=== PATIENT | male | born 1995 | race Two or more races ===

== ENCOUNTER 2025-01-03 10:05 | Outpatient (OUT) | payer MEDICARE, MEDICAID, SELFPAY ==
--- OUTSIDE RECORDS SUMMARY | 2024-12-26 10:00 | XMS_ITS | Encounter Summary ---
Author Organization [employer] [facility] tem Address [facility] [id number] [address] [place] [address] Care Team Providers Care Stunt Driver Name Role Phone DormanTonya lin JOVI Primary Care Provider Reason for Visit * ReasonCommentsFollow-upHemorrhoid/chronic diarrhea/fatigue Encounter Details DateTypeDepartmentCare Team (Latest Contact Info)Ptvasffybcw53/06/2025 10:00 AM ESTOffice Visit [facility] [address] [place] [address] [address] [place] [address] Charlie Landeros, DO [address] [facility] [address] [place] [address] Diabetes mellitus type 2 with hyperosmolarity, uncontrolled (CMS-HCC) (Primary Dx); Hepatic steatosis; Morbid obesity (CMS-HCC); Chronic diarrhea of unknown origin; Type 2 diabetes mellitus without complication, without long-term current use of insulin (CMS-HCC) Social History Tobacco UseTypesPacks/DayYears UsedDateSmoking Tobacco: NeverSmokeless Tobacco: NeverAlcohol UseStandard Drinks/WeekCommentsNo0 (1 standard drink = 0.6 oz pure alcohol)[facility] UtilitiesAnswerDate RecordedIn the past 12 months has the electric, gas, oil, or water company threatened to shut off services in your home?No 4PHQ-2AnswerDate RecordedTotal Zlvdv900312/26/2024PRAPARE - TransportationAnswerDate RecordedIn the past 12 months, has lack of transportation kept you from medical appointments or from getting medications?No 11/09/2023In the past 12 months, has lack of transportation kept you from meetings, work, or from getting things needed for daily living?No11/09/2023 AUDIT-CAnswerDate RecordedQ1: How often do you have a drink containing alcohol? Never12/26/2024Q2: How many drinks containing alcohol do you have on a typical day when you are drinking?Patient does not drink12/26/2024Q3: How often do you have six or more drinks on one occasion?Never12/26/2024Housing InstabilityAnswer Date RecordedAre you worried or concerned that in the next two months you may not have stable housing that you own, rent or stay in as a part of a household? No11/09/2023hildcareAnswerDate PsxeyoizHozrhlrxvIkdxoha78/12/2019Employment AnswerDate YrdbmmxuZcxqugxlykUxvlcqy39/12/2019Hunger ScreeningAnswerDate RecordedWithin the past 12 months we worried whether our food would run out before we got money to buy more.Never True12/26/2024Within the past 12 months the food we bought just didn't last and we didn't have money to get more.Never True12/26/2024Purpose - LifeAnswerDate RecordedPurpose and direction in life Tukebjp1203/06/2020ex and Gender InformationValueDate RecordedSex Assigned at BirthNot on fileLegal DciKjzz5809/25/2014 11:53 AM EDTGender IdentityNot on file Sexual OrientationNot on filedocumented as of this encounter Last Filed Vital Signs Vital SignReadingTime TakenCommentsBlood Qpdrglim685/8212/26/2024 10:00 AM EST Bxiyk206012/26/2024 10:00 AM ZMMGcdnpzxkzsn41.6 ??C (97.9 ??F)12/26/2024 10:00 AM ESTRespiratory Rate--Oxygen Rxligznwzk58%12/26/2024 10:00 AM ESTInhaled Oxygen Concentration--Jhrqyx707.5 kg (393 lb 9.6 oz)12/26/2024 10:00 AM ESTHeight--Body Mass Index63.5308 7:57 PM EDTdocumented in this encounter Functional Status * AUDIT-C ScoreAnswerDate of IozszqagwmHfthxb123/06/2025 10:00 AM Vero Pyle CNA * QuestionAnswerDate of AssessmentAuthorQ1: How often do you have a drink containing alcohol?Never12/26/2024 10:00 AM Vero Pyle, NERYAQ2: How many drinks containing alcohol do you have on a typical day when you are drinking? Patient does not drink12/26/2024 10:00 AM Vero Pyle CNAQ3: How often do you have six or more drinks on one occasion?Never12/26/2024 10:00 AM Vero Villafuerte CNA documented as of this encounter Progress Notes * Charlie Landeros, - 12/26/2024 10:00 AM EST Images from the original note were not included. [facility] [address] [facility] [place] [address] [place] [address] Patient: Bernard Freedman Date of : 1995 Encounter Date: 12/26/2024 Subjective: Chief Complaint Chief Complaint Patient presents with Follow-up Hemorrhoid/chronic diarrhea/fatigue History of Present Illness Bernard Freedman is a 29 y.o. male, established patient, that presents to the office for 1 monthfollow up. History provided by patient 29 yr old male presented to clinic for 1 month follow up. Patient with several questions regarding medications, lab results completed since last visit. Patient's biggest concern today related to moderate hepatic steatosis with no discrete focal hepatic parenchymal abnormality. Lab work from 11/25/24showed ALT level elevated at 51. Patient's diarrhea has improved. Review of Systems Review of Systems Constitutional: Positive for fatigue (has improved some as he began taking vitamin B12 supplement as he was taking metformin which has helped with symptoms.). Has been eating more fiber in food and protein supplement to help with satiety Gastrointestinal: Positive for diarrhea (He states that diarrhea improved with changing to metfromin XR from regular metformin but still having loose stools primarily but consistency varies from softto normal formed stool). He states that since diarrhea has improved that he is not having as significant hemmorrhoid issues He states that urge to have BM varies after eating from almost immediately after starting eating to30 minutes after eating on average. This too has improved with with changing from metformin to metformin XR. Vital Signs BP 136/82 (BP Site: Left Arm, BP Postition: Sitting) Pulse 79 Temp 36.6 ??C (97.9 ??F) (Oral) Wt (!) 178.5 kg (393 lb 9.6 oz) SpO2 97% BMI 63.53 kg/m?? Physical Exam Physical Exam Constitutional: General: He is not in acute distress. Appearance: He is morbidly obese. He is not ill-appearing or toxic-appearing. Cardiovascular: Rate and Rhythm: Normal rate and regular rhythm. Heart sounds: No murmur heard. Pulmonary: Effort: Pulmonary effort is normal. No accessory muscle usage or respiratory distress. Breath sounds: Normal breath sounds. No decreased breath sounds, wheezing, rhonchi or rales. Neurological: Mental Status: He is alert. Psychiatric: Mood and Affect: Mood and affect normal. Speech: Speech normal. Behavior: Behavior normal. Behavior is not agitated. Past Medical, Family, Surgery and Social History Past Medical History: Diagnosis Date Acute appendicitis, uncomplicated 10/01/2021 Anxiety Arrhythmia Bipolar disorder ([facility]) Depression DM (diabetes mellitus), type 2 ([facility]) HTN (hypertension) Obesity Panic disorder Prediabetes PTSD (post-traumatic stress disorder) Sleep apnea Past Surgical History: Procedure Laterality Date CYST REMOVAL Left wrist DAVINCI APPENDECTOMY N/A 11/09/2023 Performed by Sher Oconnor MD at [facility] EXCISION GANGLION WRIST Left 11/04/2016 Performed by Baldemar Roberson MD at [facility] Family History Problem Relation Age of Onset Heart failure Mother Diabetes type II Father Kidney disease Father Other Problem (dialysis) Father Heart failure Maternal Grandmother Heart failure Maternal Aunt Social History Socioeconomic History Marital status: Spouse name: Not on file Number of children: Not on file Years of education: Not on file Highest education level: Not on file Occupational History Not on file Tobacco Use Smoking status: Never Smokeless tobacco: Never Vaping Use Vaping status: Never Used Substance and Sexual Activity Alcohol use: No Drug use: No Sexual activity: Defer Other Topics Concern Not on file Social History Narrative Not on file Social Drivers of Health Financial Resource Strain: Not on file Food Insecurity: No Food Insecurity (12/26/2024) Hunger Screening Food Insecurity - Worry: Never True Food Insecurity - Inability: Never True Recent Concern: Food Insecurity - Food Insecurity Present (11/22/2024) Hunger Screening Food Insecurity - Worry: Sometimes True Food Insecurity - Inability: Sometimes True Transportation Needs: No Transportation Needs (11/09/2023) PRAPARE - Transportation Lack of Transportation (Medical): No Lack of Transportation (Non-Medical): No Physical Activity: Not on file Stress: Not on file Social Connections: Not on file Interpersonal Safety: Not At Risk (11/09/2023) Humiliation, Afraid, Rape, and Kick questionnaire Fear of Current or Ex-Partner: No Emotionally Abused: No Physically Abused: No Sexually Abused: No Housing Instability: Low Risk (11/09/2023) Housing Instability Housing Instability: No Allergies and Current Medications Allergies Allergen Reactions Lamotrigine Tachycardia Paliperidone Other (See Comments) Current Outpatient Medications on File Prior to Visit Medication Sig acetaminophen (TYLENOL EXTRA STRENGTH) 500 mg tablet Take 2 tablets (1,000 mg total) by mouth every6 (six) hours as needed for pain. dicyclomine (BENTYL) 20 mg tablet Take 1 tablet (20 mg total) by mouth in the morning and 1 tablet (20 mg total) before bedtime. hydrocortisone (ANUSOL-HC) 2.5 % rectal cream Insert 1 Application into the rectum in the morning and 1 Application before bedtime. hydrocortisone (ANUSOL-HC) 25 mg suppository Insert 1 suppository (25 mg total) into the rectum every 12 (twelve) hours. ibuprofen (MOTRIN) 800 mg tablet Take 1 tablet (800 mg total) by mouth every 8 (eight) hours as needed for pain. ketoconazole (NIZORAL) 2 % shampoo Apply 1 Application topically 2 (two) times a week. Apply to damp skin, lather, leave on 5 minutes, and rinse lancets (onetouch ultrasoft) misc Test daily and as needed omeprazole (PriLOSEC) 40 mg capsule Take 1 capsule (40 mg total) by mouth in the morning. ondansetron ODT (ZOFRAN ODT) 4 mg disintegrating tablet Dissolve 1 tablet (4 mg total) on tongue every 8 (eight) hours as needed for nausea for up to 10 doses. polycarbophil (FIBERCON) 625 mg tablet Take 1 tablet (625 mg total) by mouth in the morning. propranolol LA (INDERAL LA) 120 mg 24 hr capsule Take 1 capsule (120 mg total) by mouth every morning. TAKE 1 CAPSULE(120 MG) BY MOUTH IN THE MORNING No current facility-administered medications on file prior to visit. Labs and Imaging Lab Results Component Value Date WBC 11.3 (H) 11/25/2024 HGB 14.2 11/25/2024 HCT 43.4 11/25/2024 PLT 319 11/25/2024 CHOL 98 (L) 11/25/2024 TRIG 350 (H) 11/25/2024 HDL 28 (L) 11/25/2024 ALT 50 (H) 11/25/2024 AST 26 11/25/2024 K 3.9 11/25/2024 CL 102 11/25/2024 CREATININE 0.79 11/25/2024 BUN 9 11/25/2024 CO2 29 11/25/2024 TSH 2.67 11/25/2024 INR 1.0 10/07/2023 MICROALBUR <0.7 11/25/2024 CT abdomen and pelvis with contrast History: epigastric pain Exam/Technique: CT images of abdomen and pelvis were obtained following intravenous contrast injection. CT does automated exposure control was utilized. All CT scans at this facility use dose modulation, iterative reconstruction, and/or weight based dosing when appropriate to reduce radiation dose to as low as reasonably achievable. Comparison: 02/02/2024 Findings: Lung bases are clear. There is moderate hepatic steatosis with no discrete focal hepatic parenchymal abnormality. Gallbladder is mildly distended with no bile duct dilatation. Spleen, pancreas and adrenal glands are unremarkable. There are few pericaval lymph node largest measures 1.3 cm grossly stable compared to prior exam. Both kidneys are unremarkable. Bowel loops are grossly unremarkable. There is no free peritoneal air or fluid. Urinary bladder and prostate gland are grossly unremarkable Portal and mesenteric vessels are patent. There are few mesenteric root lymph nodes more prominent compared to prior exam largest measures 1.7 cm. Portal and mesenteric vessels are grossly patent. There is no gross acute osseous injury. IMPRESSION: Mesenteric adenitis with interval development of few prominent mesenteric root lymph nodes. Moderate hepatic steatosis. Finalized by Juan Hernandez MD on 10/12/2024 11:01 PM Assessment/Plan: 1. Diabetes mellitus type 2 with hyperosmolarity, uncontrolled ([facility]) - blood-glucose meter kit; Use as instructed Dispense: 1 each; Refill: 0 - blood sugar diagnostic (glucose blood) strip; Test daily and as needed Dispense: 120 strip; Refill: 5 - tirzepatide (MOUNJARO) 2.5 mg/0.5 mL pen injector; Inject 2.5 mg under the skin every 7 days. Dispense: 2 mL; Refill: 0 2. Hepatic steatosis 3. Morbid obesity ([facility]) 4. Chronic diarrhea of unknown origin 5. Type 2 diabetes mellitus without complication, without long-term current use of insulin ([facility]) Chronic diarrhea of unknown origin Diarrhea improved as patient changed from metformin to metformin ER. Stool tests were negative. Will stop metformin to see if diarrhea continues to resolve without irritant. Morbid obesity ([facility]) Obesity is unchanged. Patient's diarrhea improved but had ~10 lbs weight gain since last visit. Discussed with patient the benefits of GLP-1 medications in regards to blood sugar control and weight loss. Weight loss will help with hepatic steatosis Hepatic steatosis Discussed with patient that weight loss will help with hepatic steatosis. Continue to follow a low carb diet Type 2 diabetes mellitus without complication, without long-term current use of insulin ([facility]) Last HbA1c 6.5%. Due to diarrhea symptoms, will stop metformin. Start on Mounjaro 2.5 mg SQ weekly to for 4 weeks then will plan to increase strength of medication monthly. Follow up: 1 month diabetes/obesity weight loss - Charlie Landeros DO 12/26/24 9:30 PM documented in this encounter Miscellaneous Notes * Assessment & Plan Note - Charlie Landeros DO - 12/26/2024 9:30 PM EST Associated Problem(s): Type 2 diabetes mellitus without complication, without long-term current useof insulin ([facility]) Last HbA1c 6.5%. Due to diarrhea symptoms, will stop metformin. Start on Mounjaro 2.5 mg SQ weekly to for 4 weeks then will plan to increase strength of medication monthly. * Assessment & Plan Note - Charlie Landeros DO - 12/26/2024 9:23 PM EST Associated Problem(s): Hepatic steatosis Discussed with patient that weight loss will help with hepatic steatosis. Continue to follow a low carb diet * Assessment & Plan Note - Charlie Landeros DO - 12/26/2024 9:22 PM EST Associated Problem(s): Morbid obesity (CMS-HCC) Obesity is unchanged. Patient's diarrhea improved but had ~10 lbs weight gain since last visit. Discussed with patient the benefits of GLP-1 medications in regards to blood sugar control and weight loss. Weight loss will help with hepatic steatosis * Assessment & Plan Note - Charlie Landeros DO - 12/26/2024 9:18 PM EST Associated Problem(s): Chronic diarrhea of unknown origin Diarrhea improved as patient changed from metformin to metformin ER. Stool tests were negative. Will stop metformin to see if diarrhea continues to resolve without irritant. documented in this encounter Plan of Treatment DateTypeDepartmentCare Team (Latest Contact Info)Xcorfjjejtd99/11/2025 11:00 AM ESTClinical Support [facility] [address] [place] [address] Tonya Dorman APRN-CNP [address] [place] [phone] documented as of this encounter Visit Diagnoses Diagnosis Diabetes mellitus type 2 with hyperosmolarity, uncontrolled (CMS-HCC)- Primary Hepatic steatosis Other chronic nonalcoholic liver disease Morbid obesity (CMS-HCC) Morbid obesity Chronic diarrhea of unknown origin Diarrhea Type 2 diabetes mellitus without complication, without long-term current use of insulin (CMS-HCC) documented in this encounter Additional Health Concerns AssessmentNoted TimePHQ-9 Depression Total Score: 24102/26/2024 9:59 AM EST documented as of this encounter Care Teams Team MemberRelationshipSpecialtyStart DateEnd Date Tonya Dorman APRN-PRODUCTION WEIGHER [address] [place] [phone] PCP - GeneralNurse Practitioner03/25/24documented as of this encounter
--- OUTSIDE RECORDS SUMMARY | 2025-01-03 10:11 | XMS_ITS | Clinical Summary ---
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 Name Role Phone Tonya Dorman MD Primary Care Provider [phone] Allergies Active AllergyReactionsCriticalityNoted BxxeIzoahwxzXnqhaacgqgn38/19/2021 Other Reaction(s): increase heart rate, Tachycardia Viebukpitaam42/19/2021 Other Reaction(s): depressed, Other (See Comments) Medications MedicationSigDispense QuantityRefillsLast FilledStart DateEnd DateStatus acetaminophen (Tylenol) 500 MG tablet Take 500 mg by mouth every 6 (six) hours if dcsjyz0202/28/2023ctive ibuprofen 800 MG tablet Take 800 mg by mouth every 8 (eight) hours if bxzmct0007/13/2023ctive atorvastatin (Lipitor) 10 MG tablet Indications:Hyperlipidemia, unspecified hyperlipidemia typeTake 1 tablet (10 mg) by mouth Daily 90 tablet ctive Additional Information Patient not taking.Reported on 02/15/2024 nystatin (Mycostatin) 264643 UNIT/GM powder Indications:Yeast infectionApply topically 2 (two) times a day 30 g 5Active Blood Glucose Monitoring Suppl (B-D LOGIC BLOOD GLUCOSE) w/Device kit Indications:Type 2 diabetes mellitus with hyperglycemia, without long-term current use of insulin (HCC)1 each Daily Fill with what the insurance will cover 1 kit 01/25/2024ctive metFORMIN (Glucophage) 500 MG tablet Indications:Type 2 diabetes mellitus with hyperglycemia, without long-term current use of insulin (HCC)TAKE 1 TABLET(500 MG) BY MOUTH IN THE MORNING AND IN THE EVENING WITH MEALS 180 tablet 4Active propranolol LA (Inderal LA) 120 MG 24 hr capsule Indications:AnxietyTAKE 1 CAPSULE(120 MG) BY MOUTH IN THE MORNING. DO NOT CRUSH, CHEW, OR SPLIT 90 capsule 4Active Glucose Blood (Blood Glucose Test Strips 333) strip Indications:Type 2 diabetes mellitus with hyperglycemia, without long-term current use of insulin (HCC)1 each by In Vitro route Daily Please fill with what insurance will cover 100 strip 5Active Lancets misc Indications:Type 2 diabetes mellitus with hyperglycemia, without long-term current use of insulin (HCC)1 each Daily Please fill what his insurance will cover 100 each 5Active losartan (Cozaar) 50 MG tablet Take 50 mg by mouth in the morning.5Active omeprazole (PriLOSEC) [address] capsule Take 40 mg by mouth in the morning.5Active Active Problems ProblemNoted DateDiagnosed DateType 2 diabetes mellitus without complication, without long-term current use of ifrddwn3402/15/2024Mixed obsessional thoughts and acts4Pain in both feet07/13/2023cute pain of right ahitwsch00/04/2024 PTSD (post-traumatic stress disorder)3Bipolar 1 disorder, mixed, xuxrsnah66/04/2023cute internal derangement of left knee3Pain in left shin11/09/2022cquired equinus deformity of foot11/07/2022onstipation by delayed colonic iztxnhq7111/07/20221297Xqbzsorlv70/18/2023Hearing difficulty of both ears11/07/2022Mixed conductive and sensorineural hearing loss of right ear 11/07/2022ifficulty controlling anger04/26/2022Episode of recurrent major depressive fftohsrl49/07/2023cute appendicitis, qrxixqrxngyji33/12/2022 Ljreckuzyikl23/12/2022Acute back pain with jcrtwlmi38/07/2021Back pain of lumbosacral region with /31/1036Ckuporjtutf16/14/2021Posttraumatic stress gcypgulz11/23/2020Attention deficit hyperactivity disorder (ADHD), combined type09/12/2019Learning eqcefatlym16/13/2020Allergic vhibjsha07/05/2019 Gastroesophageal reflux kxjwmkj8109/28/2018Chronic kcdcjny7704/25/2018Vitamin D uuqurgqaep19/12/8893Qnrvkeg40/30/2017Bipolar I /12/2017Panic attack 07/11/20166423Olrbbjini80/22/2017Mixed ehqbldsyoqborz51/28/2017Morbid obesity 03/19/2016Benign essential qjsulewwyutm08/09/2015OSA on CPAP12/25/2014 Resolved Problems ProblemNoted DateDiagnosed DateResolved DateAnxiety disorder due to general medical rowisnqpy52djustment Bilateral hearing lossontact with and (suspected) exposure to environmental tobacco smoke (acute) (chronic)Low HDL (under 40)Memory loss Fpfvokglmtbwlxpeehsg53/20/201910/04/2023Lipoprotein deficiency disorder Hyperlipidemiaure hyperglyceridemia nxiety about mpvoea97 Immunizations ImmunizationAdministration DatesNext OhsJIG4205/06/1997,03/06/1997,1996DTaP, Hrzxiskethi58/02/2002,12/26/1997HPV, Fbzdlsjonqhq63/15/2010,06/11/2009, 04/20/2009Hep A, ped/adol, 2 dose04/20/2009Hep B, Adolescent or Pediatric 05/06/1997,1996,1996HiB, lpijfwgkczj19/06/1998,05/06/1997,03/06/1997 ,1996IPV05/22/2001Influenza, seasonal, tbqejvyepl79/13/2012,12/04/2009 Influenza, seasonal, injectable, preservative free11/30/2018,12/29/2008MMR 11/13/2002,10/05/2001,12/26/1997Meningococcal KMB8T2302/16/2009Novel jhmrtraax-C4P6-60, preservative-free02/16/2009OPV05/06/1997,03/06/1997, 1996Tdap104/19/20086746Vsivkdrve48/28/2009,12/26/1997 Family History Medical HistoryRelationNameCommentsAnxiety disorderFatherDiabetesFatherHeart diseaseFatherHypertensionFatherstomach troubleFatherAnxiety disorderMother DepressionMotherHypertensionMotherLung diseaseMotherMental illnessMotherStroke Motherstomach troubleMotherRelationNameStatusCommentsBrother1 brotherFatherAlive MotherAliveSister 1Sister 2 Social History Tobacco UseTypesPacks/DayYears UsedDateSmoking Tobacco: NeverSmokeless Tobacco: Never Tobacco Cessation:Counseling Given: Not Answered Alcohol UseStandard Drinks/WeekCommentsNot Currently0 (1 standard drink = 0.6 oz pure alcohol)caffeine: 4-10 cans of soda dailyPHQ-2AnswerDate RecordedPatient Health Questionnaire-2 Bkyff226Sex and Gender InformationValueDate RecordedSex Assigned at ArpeuVcdl71/12/2024 10:43 AM ESTLegal RlsBapl7705/04/2022 6:37 PM EDTGender CkflpvitMbbi35/15/2023 6:37 PM EDTSexual OrientationNot on file Last Filed Vital Signs Vital SignReadingTime TakenCommentsBlood Gfyiwtos440/7801 3:32 PM EST Otpet071202/15/2024 1:59 PM UAHVeyaaxttdmf11.2 ??C (97.2 ??F)03/11/2024 3:32 PM ESTRespiratory Gxmu872704/17/2023 1:59 PM ESTOxygen Grcqcauzws66%02/15/2024 1:59 PM ESTInhaled Oxygen Concentration--Wmofvi496 kg (382 lb)06/28/2024 10:34 AM EDT Wsdqnh051.6 cm (5' 6 )06/28/2024 10:34 AM EDTBody Mass Index61.66006/28/2024 10:34 AM EDT Plan of Treatment Health MaintenanceDue DateLast DoneCommentsCOVID-19 Vaccine (#1)2001 Diabetes: Retinopathy Ggoecfibi90/11/2007Pneumococcal Vaccine: Pediatrics (0 to 5 Years) and At-Risk Patients (6 to 64 Years) (1 of 2 - PCV)10/01/2015Medicare Annual Wellness (AWV)/3Diabetes: Hemoglobin A1C04/24/2024 01/25/2024, 09/05/2022, 06/01/2020, Additional history existsInfluenza Vaccine (#1), 03/04/2011, 12/04/2009, Additional history exists Diabetes: Urine Protein Nbxbwisol61 Procedures Procedure NamePriorityDate/TimeAssociated DiagnosisCommentsPOCT GLYCOSYLATED HEMOGLOBIN (HGB A1C)Ysdoens8601/25/2024 4:19 PM EST Elevated blood sugar level MICROALBUMIN / CREATININE URINE RHVLYDwhrcfa93/27/2024 3:40 PM EST Prediabetes from Last 3 Months or Most Recently Relevant to Health Maintenance Results * POCT glycosylated hemoglobin (Hb A1C) docked device (01/25/2024 4:19 PM EST) ComponentValueRef RangeTest MethodAnalysis TimePerformed AtPathologist SignatureHemoglobin A1C10.0Specimen (Source)Anatomical Location / Laterality Collection Method / VolumeCollection TimeReceived TimeBloodVenous blood specimen / Qzucxks2001/25/2024 4:19 PM EST Narrative Authorizing ProviderResult TypeResult StatusChristy Jermaine Rosado POINT OF CARE TEST ENTER/EDIT ORDERABLESFinal Result * (ABNORMAL) Microalbumin / creatinine, urine ratio (01/17/2024 3:40 PM EST) ComponentValueRef RangeTest MethodAnalysis TimePerformed AtPathologist SignatureCREATININE, RANDOM OZVXH8746 - 320 mg/dLQUESTALBUMIN, URINE2.3See Note: mg/dLQUESTComment: Reference Range: Reference Range Not established ALBUMIN/CREATININE RATIO, RANDOM URINE33(H)<30 mg/g creatQUESTComment: The ADA defines abnormalities in albumin excretion as follows: Albuminuria Category ?Result (mg/g creatinine) Normal to Mildly increased <30 Moderately increased ? 30-299 Severely increased > OR = 300 The ADA recommends that at least two of three specimens collected within a 3-6 month period be abnormal before considering a patient to be within a diagnostic category. Specimen (Source)Anatomical Location / LateralityCollection Method / Volume Collection TimeReceived TimeUrineUrine specimen obtained by clean catch procedure / Gmcgbtr3901/17/2024 3:40 PM EST01/17/2024 3:40 PM EST Narrative Resulting Agency Comment Performing Organization Information ?Site ID: [id number] ?Name: [facility] ?Address: [address] [place] [address], [address] [place] [id number] ?Director: Miguel Lala MD Authorizing ProviderResult TypeResult StatusChristy A Alonzo CHACKO URINE ORDERABLESFinal ResultPerforming OrganizationAddressCity/State/ZIP CodePhone Number [facility] from Last 3 Months or Most Recently Relevant to Health Maintenance Insurance Care Teams Team MemberRelationshipSpecialtyStart DateEnd Date Tonya Dorman MD [address], [place] [address] PCP - GeneralFamily Medicine03/05/24
--- OUTSIDE RECORDS SUMMARY | 2025-01-03 10:11 | XMS_ITS | Encounter Summary ---
Author Organization [employer] tem Address [id number] [address] 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 Name Role Phone Tonya Dorman JOVI Primary Care Provider Encounter Details DateTypeDepartmentCare Team (Latest Contact Info)Sujubtdlrwn08/06/2025Travel Social History Tobacco UseTypesPacks/DayYears UsedDateSmoking Tobacco: NeverSmokeless Tobacco: NeverAlcohol UseStandard Drinks/WeekCommentsNo0 (1 standard drink = 0.6 oz pure alcohol)[facility] UtilitiesAnswerDate RecordedIn the past 12 months has the electric, gas, oil, or water company threatened to shut off services in your home?No 11/09/2023HQ-2AnswerDate RecordedTotal Vyspb348612/26/2024PRAPARE - TransportationAnswerDate RecordedIn the past 12 months, [...] in as a part of a household? No4ChildcareAnswerDate UwxumqhsPsznwevfuUbofqdh28/12/2019Employment AnswerDate KfjpieakDfwcdyrbzgJlpevzx26/12/2019Hunger ScreeningAnswerDate RecordedWithin the past 12 months we worried whether our food would run out before we got money to buy more.Never True12/26/2024Within the past 12 months the food we bought just didn't last and we didn't have money to get more.Never True12/26/2024Purpose - LifeAnswerDate RecordedPurpose and direction in life Fptluvm7803/06/2020ex and Gender InformationValueDate RecordedSex Assigned at BirthNot on fileLegal TzgJowm9709/25/2014 11:53 AM EDTGender IdentityNot on file Sexual OrientationNot on filedocumented as of this encounter Functional Status * AUDIT-C ScoreAnswerDate of BswosiqzilBtchkd838/06/2025 10:00 AM Vero Pyle CNA * QuestionAnswerDate of AssessmentAuthorQ1: How often do you have a drink containing alcohol?Never12/26/2024 10:00 AM Vero Pyle CNAQ2: How many drinks containing alcohol do you have on a typical day when you are drinking? Patient does not drink12/26/2024 10:00 AM Vero Pyle CNAQ3: How often do you have six or more drinks on one occasion?Never12/26/2024 10:00 AM Vero Villafuerte CNA documented as of this encounter Plan of Treatment DateTypeDepartmentCare Team (Latest Contact Info)Gbitzmhlkdd04/11/2025 11:00 AM ESTClinical Support [facility] [address] [place] [phone] Tonya Dorman APRN-GAEL [address] [place] [address], [place] [phone] documented as of this encounter Visit Diagnoses Not on filedocumented in this encounter Additional Health Concerns AssessmentNoted TimePHQ-9 Depression Total Score: 9:59 AM EST documented as of this encounter Care Teams Team MemberRelationshipSpecialtyStart DateEnd Date Tonya Dorman, NAJMA-GAEL [address] [place] [phone] PCP - GeneralNurse Practitioner03/25/24documented as of this encounter
--- OUTSIDE RECORDS SUMMARY | 2025-01-03 10:11 | XMS_ITS | Clinical Summary ---
Author Organization [facility] Address [address] [place] [address] Care Team Providers Care Spring Tier Name Role Phone Unavailable Primary Care Provider Unavailabl e Social History Tobacco UseTypesPacks/DayYears UsedDateSmoking Tobacco: Never AssessedSex and Gender InformationValueDate RecordedSex Assigned at BirthNot on fileLegal Sex Male12/10/2024 2:06 PM EDTGender IdentityNot on fileSexual OrientationNot on file Plan of Treatment DateTypeDepartmentCare Team (Latest Contact Info)Uamwjxsvice40/01/2025 10:20 AM ESTOffice Visit [facility] [address] [place] [address] Glenn Fu MD [address] [place] [phone] Health MaintenanceDue DateLast DoneCommentsMedicare Annual Wellness (AWV) 1996Depression Knnciqluu66/11/2009dult Vwgkyoc75 Influenza Vaccine (#1), 12/04/2009, 02/16/2009, Additional history existsZoster Vaccines (1 of 2)7104/19/2008, 12/26/1997HIB HjubtkxbFtdlcxhhx50/06/1998, 05/06/1997, 03/06/1997, Additional history exists IPV RfktjmbxDohjtmvii22/02/2002, 05/06/1997, 03/06/1997, Additional history existsMeningococcal VaccineAged Out02/16/2009No longer eligible based on patient's age to complete this topicVaricella VbvnarvnAqapqplzp24/28/2009, 12/26/1997HPV KjootftqIqqbzzfuu55/15/2010, 06/11/2009, 04/20/2009Meningococcal B VaccineAged OutNo longer eligible based on patient's age to complete this topic Pneumococcal Vaccine: Pediatrics (0 to 5 Years) and At-Risk Patients (6 to 64 Years)Aged OutNo longer eligible based on patient's age to complete this topic Rotavirus VaccinesAged OutNo longer eligible based on patient's age to complete this topic Insurance
--- OUTSIDE RECORDS SUMMARY | 2025-01-03 10:11 | XMS_ITS | Clinical Summary ---
Author Organization [facility] Address [id number] 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 MedicationSigDispense QuantityRefillsLast FilledStart DateEnd DateStatus omeprazole (PriLOSEC) 40 mg capsule Take 1 capsule (40 mg total) by mouth in the morning. 30 capsule 5Active ketoconazole (NIZORAL) 2 % shampoo Indications:Scalp psoriasisApply 1 Application topically 2 (two) times a week. Apply to damp skin, lather, leave on 5 minutes,and rinse 120 mL 5Active lancets (onetouch ultrasoft) [facility] Indications:Diabetes mellitus type 2 with hyperosmolarity, uncontrolled ([facility])Test daily and as needed 120 each 505Active ibuprofen (MOTRIN) 800 mg tablet Take 1 tablet (800 mg total) by mouth every 8 (eight) hours as needed for pain. 90 tablet 5Active acetaminophen (TYLENOL EXTRA STRENGTH) 500 mg tablet Take 2 tablets (1,000 mg total) by mouth every 6 (six) hours as needed for pain. 100 tablet 5Active ondansetron ODT (ZOFRAN ODT) 4 mg disintegrating tablet Dissolve 1 tablet (4 mg total) on tongue every 8 (eight) hours as needed for nausea for up to 10 doses. 10 tablet 5Active dicyclomine (BENTYL) 20 mg tablet Take 1 tablet (20 mg total) by mouth in the morning and 1 tablet (20 mg total) before bedtime. 20 tablet 5Active propranolol LA (INDERAL LA) 120 mg 24 hr capsule Indications:Benign essential hypertensionTake 1 capsule (120 mg total) by mouth every morning. TAKE 1 CAPSULE(120 MG) BY MOUTH IN THE MORNING 30 capsule 5Active hydrocortisone (ANUSOL-HC) 2.5 % rectal cream Indications:Hemorrhoids, unspecified hemorrhoid typeInsert 1 Application into the rectum in the morning and 1 Application before bedtime. 30 g 5Active hydrocortisone (ANUSOL-HC) 25 mg suppository Indications:Hemorrhoids, unspecified hemorrhoid typeInsert 1 suppository (25 mg total) into the rectum every 12 (twelve) hours. 60 suppository 5Active polycarbophil (FIBERCON) 625 mg tablet Indications:Hemorrhoids, unspecified hemorrhoid typeTake 1 tablet (625 mg total) by mouth in the morning. 200 tablet 5Active blood-glucose meter kit Indications:Diabetes mellitus type 2 with hyperosmolarity, uncontrolled ([facility])Use as instructed 1 each 5Active blood sugar diagnostic (glucose blood) strip Indications:Diabetes mellitus type 2 with hyperosmolarity, uncontrolled ([facility])Test daily and as needed 120 strip 5Active tirzepatide (MOUNJARO) 2.5 mg/0.5 mL pen injector Indications:Diabetes mellitus type 2 with hyperosmolarity, uncontrolled ([facility])Inject 2.5 mg under the skin every 7 days. 2 mL 5Active blood-glucose meter kit Indications:Diabetes mellitus type 2 with hyperosmolarity, uncontrolled ([facility])Use as instructed 1 each Discontinued(Reorder) blood sugar diagnostic (glucose blood) strip Indications:Diabetes mellitus type 2 with hyperosmolarity, uncontrolled ([facility])Test daily and as needed 120 strip 50Discontinued(Reorder) metFORMIN XR (GLUCOPHAGE XR) 500 mg 24 hr tablet Indications:Type 2 diabetes mellitus without complication, without long-term current use of insulin ([facility])Take 2 tablets (1,000 mg total) by mouth daily with breakfast. TAKE 2 TABLETS(1000 MG) BY MOUTH DAILY WITH BREAKFAST 180 tablet Discontinued atorvastatin (LIPITOR) 40 mg tablet Indications:Mixed hyperlipidemiaTake 1 tablet (40 mg total) by mouth in the morning. 90 tablet Discontinued(Therapy completed) Active Problems ProblemNoted DateDiagnosed DateHepatic bwbtrqaoh83/08/2025 Assessment & Plan (12/26/2024 9:23 PM EST): Discussed with patient that weight loss will help with hepatic steatosis. Continue to follow a low carb diet Chronic diarrhea of unknown hzrbbr9111/27/2024 Assessment & Plan (12/26/2024 9:18 PM EST): Diarrhea improved as patient changed from metformin to metformin ER. Stool tests were negative. Will stop metformin to see if diarrhea continues to resolve without irritant. Rqowqvjoute64/06/2025 Assessment & Plan (07/26/2024 8:50 PM EDT): Discussed with patient the different treatment options for hemorrhoids including topical agents like Anusol HC ointment which he has been using, suppository agents and procedures to remove hemorrhoid. Patient understood that ultimately he will need some kind of procedure as hemorrhoids have been persistent for some time but wanted to try nonsurgical options first. Prescribed Anusol lqygljxvwatsmd89 mg suppository to apply every 12 hours for symptoms. Transient weakness of lower mdxijaxhg39/06/2025 Assessment & Plan (07/26/2024 8:51 PM EDT): Unsure of etiology for episodic transient weakness of his lower extremity. Ordered x-rays of left and right knee to evaluate. May consider imaging of the lumbar spine or nerve conduction studies. Scalp /03/2025 Assessment & Plan (07/26/2024 8:47 PM EDT): Prescribed Nizoral 2% shampoo to apply 2 times weekly. Dampened scalp apply shampoo and leave in for 5 minutes and then rinse. Type 2 diabetes mellitus without complication, without long-term current use of vlwblze0403/25/2024 Assessment & Plan (12/26/2024 9:30 PM EST): Last HbA1c 6.5%. Due to diarrhea symptoms, will stop metformin. Start on Mounjaro 2.5 mg SQ weekly to for 4 weeks then will plan to increase strength of medication monthly. Gastroesophageal reflux smdpiwx2603/25/2024Post-op pain11/09/2023Mixed obsessional thoughts and acts4Pain in both feet4Acute pain of right uzjyuyqn15/04/2024ipolar 1 disorder, mixed, biwxtbsu52/04/2023cute internal derangement of left knee11/09/2022ain in left shin11/09/2022cquired equinus deformity of foot11/07/2022onstipation by delayed colonic birwirj1911/07/2022 Hearing difficulty of both ears11/07/2022Mixed conductive and sensorineural hearing loss of right ear11/07/2022Episode of recurrent major depressive shtsmoqa29/07/2023ifficulty controlling anger04/26/2022cute back pain with /07/2021Back pain of lumbosacral region with kunjcomn88/31/2021 Attention deficit hyperactivity disorder (ADHD), combined type09/12/2019Learning ywknvzwblo92/13/2020Allergic hfgdsujv13/05/2019Chronic dmlltdf0904/25/2018Vitamin D tdlvyncfrd86/12/1645Pdqggup57/30/2017Panic wwbmff4307/11/2016Mixed hlpcikqbenztsl40/28/2017Morbid pflwumi8503/19/2016 Assessment & Plan (12/26/2024 9:22 PM EST): Obesity is unchanged. Patient's diarrhea improved but had ~10 lbs weight gain since last visit. Discussed with patient the benefits of GLP-1 medications in regards to blood sugar control and weight loss. Weight loss will help with hepatic steatosis Abnormal csnnmncbxgnegchsr57/07/2016Chest pain11/27/2015Benign essential nrelrwlpdftt69/09/2015OSA on CPAP12/25/2014PTSD (post-traumatic stress disorder) Resolved Problems ProblemNoted DateDiagnosed DateResolved DateAcute appendicitis, uncomplicated ppendicitis Encounters DateTypeDepartmentCare TqsrEernpfcpwmu84/06/2025 10:00 AM ESTOffice Visit [facility] [address] [place] [phone] Charlie Landeros, Diabetes mellitus type 2 with hyperosmolarity, uncontrolled (CMS-HCC) (Primary Dx); Hepatic steatosis; Morbid obesity (CMS-HCC); Chronic diarrhea of unknown origin; Type 2 diabetes mellitus without complication, without long-term current use of insulin (CMS-HCC)12/26/20248069Opnzld11/09/5242Ncsaac02/06/2025Telephone [facility] [address] [place] [address] Reyna Dillard CMA 11/25/2024Telephone [facility] [address] [place] [phone] Vero Lindo CNA Cardiology Tfmydtnp60/03/2025 10:00 AM EDTClinical Support [facility] [address] [place] [phone] Charlie Landeros DO Type 2 diabetes mellitus without complication, without long-term current use of insulin ([facility]) (Primary Dx); Hepatic steatosis; Morbid obesity (CMS-HCC); Vitamin D deficiency; Chronic diarrhea of unknown origin; Mixed hyperlipidemia; Benign essential hypertension; Maternal family history of congestive heart failure; Hemorrhoids, unspecified hemorrhoid type; Chronic zyhgyez4811/22/20242046Hwoswh84/11/2025Telephone [facility] [address] [place] [address], [place] [phone] Vero Lindo CNA 10/25/2024Orders Only [facility] [address] [place] [phone] Tonya Dorman APRN-STUD SHEEP FARMER Gastroesophageal reflux disease, unspecified whether esophagitis present (Primary Dx); Hemorrhoids, unspecified hemorrhoid type10/25/2024Telephone [address] [place] [phone] Tonya Dorman APRN-STUD SHEEP FARMER 10/12/2024 7:57 PM EDT - 10/12/2024 10:53 PM EDTEmerKet[facility] [address] [place] [phone] Laura Alejandra DO Nausea and vomiting, unspecified vomiting type (Primary Dx) Discharge Disposition: Home10/12/2024Travelfrom Last 3 Months Immunizations ImmunizationAdministration DatesNext RubZZL8105/06/1997,03/06/1997,1996DTaP, Henvkadkpdb71/02/2002,12/26/1997H1N1 Inj Preservative Free02/16/2009HPV Jmrochffzuyj98/15/2010,06/11/2009,04/20/2009Hep A, 2 Dose04/20/2009HiB12/26/1997 ,05/06/1997,03/06/1997,1996IPV05/22/2001Influenza (IM) Preservative Free 11/30/2018,12/29/2008Influenza, Im Trivalent Dveqvyxxkwkm45/13/2012,12/04/2009 MMR11/13/2002,10/05/2001,12/26/1997Meningococcal LYU8I7902/16/2009OPV05/06/1997, 03/06/1997,1996Tdap104/19/20081833Kbrtklbqj96/28/2009,12/26/1997 Family History Medical HistoryRelationNameCommentsDiabetes type IIFatherKidney diseaseFather dialysisFatherHeart failureMaternal AuntHeart failureMaternal GrandmotherHeart failureMotherRelationNameStatusCommentsFatherMaternal AuntAliveMaternal GrandmotherMother Social History Tobacco UseTypesPacks/DayYears UsedDateSmoking Tobacco: NeverSmokeless Tobacco: Never Tobacco Cessation:Counseling Given: Not Answered Alcohol UseStandard Drinks/WeekCommentsNo0 (1 standard drink = 0.6 oz pure alcohol)[facility] UtilitiesAnswerDate RecordedIn the past 12 months has the [employer], [employer], [employer], or water [employer] threatened to shut off services in your home?No 11/09/2023HQ-2AnswerDate RecordedTotal Rsjys850612/26/2024PRAPARE - TransportationAnswerDate RecordedIn the past 12 months, [...] as a part of a household? No4ChildcareAnswerDate IxqmlbhwByffjwnskSfoaioy74/12/2019Employment AnswerDate RuvpyemiGedvpjlwubQszvhew09/12/2019Hunger ScreeningAnswerDate RecordedWithin the past 12 months we worried whether our food would run out before we got money to buy more.Never True12/26/2024Within the past 12 months the food we bought just didn't last and we didn't have money to get more.Never True12/26/2024Purpose - LifeAnswerDate RecordedPurpose and direction in life Reodqei8803/06/2020ex and Gender InformationValueDate RecordedSex Assigned at BirthNot on fileLegal QfxRuyu8109/25/2014 11:53 AM EDTGender IdentityNot on file Sexual OrientationNot on file Last Filed Vital Signs Vital SignReadingTime TakenCommentsBlood Turpestn113/8212/26/2024 10:00 AM EST Sepur210312/26/2024 10:00 AM MZDXbgzohliouy60.6 ??C (97.9 ??F)12/26/2024 10:00 AM ESTRespiratory Xhsh204510/12/2024 7:57 PM EDTOxygen Ogdtolsoch73%12/26/2024 10:00 AM ESTInhaled Oxygen Concentration--Aduean544.5 kg (393 lb 9.6 oz)12/26/2024 10:00 AM WGKUgprrt610.6 cm (5' 6 )10/12/2024 7:57 PM EDTBody Mass Index63.53 10/12/2024 7:57 PM EDT Plan of Treatment DateTypeDepartmentCare Team (Latest Contact Info)Twirjcxxnmo53/11/2025 11:00 AM ESTClinical Support [facility] [address] [place] [phone] Tonya Dorman, NAJMA-STUD SHEEP FARMER [address] [place] [phone] Health MaintenanceDue DateLast DoneCommentsDiabetic Ophthalmology Exam1996 Adult BMI Follow Up Plan2014DTaP,Tdap and Td Vaccines (7 - Td or Tdap) , 05/22/2001, 12/26/1997, Additional history existsInfluenza Svlamnu79, 03/04/2011, 12/04/2009, Additional history exists Diabetic Foot Exam/dult BMI Uovdeylvc89 Depression Ebyyhwgpn40Tobacco Rioluoitb59 Medical Devices Not on file Procedures Procedure NamePriorityDate/TimeAssociated DiagnosisCommentsC DIFFICILE BY PCR Puilsve7611/28/2024 9:00 AM EDT Chronic diarrhea of unknown origin GI PANEL STOOL PATHOGEN NPXVCHrzognk20/09/2025 9:00 AM EDT Chronic diarrhea of unknown origin TISSUE TRANSGLUTAMINASE, VUEJtbgurm88/06/2025 11:37 AM EDT Chronic diarrhea of unknown origin THYROID PROFILE INCLUDES TSH KC2Ttuennh13/06/2025 11:37 AM EDT Type 2 diabetes mellitus without complication, without long-term current use of insulin ([facility]) Chronic fatigue VITAMIN D 25 IBUWJGEMeylesk20/06/2025 11:37 AM EDT Vitamin D deficiency MICROALBUMIN / CREATININE URINE TSXNXVjrgnan63/06/2025 11:37 AM EDT Type 2 diabetes mellitus without complication, without long-term current use of insulin ([facility]) CBC WITH AUTO JYCWYMZIRBKNAiiyros83/06/2025 11:37 AM EDT Chronic diarrhea of unknown origin LIPID EERNNHKIoknhhd01/06/2025 11:37 AM EDT Mixed hyperlipidemia COMPREHENSIVE METABOLIC NAIHUGjhdyxs10/06/2025 11:37 AM EDT Type 2 diabetes mellitus without complication, without long-term current use of insulin ([facility]) Hepatic steatosis Chronic diarrhea of unknown origin POCT HEMOGLOBIN F4MOtevarg53/03/2025 10:53 AM EDT Type 2 diabetes mellitus without complication, without long-term current use of insulin ([facility]) CT ABDOMEN AND PELVIS W WTCJJLOS77/23/2025 9:28 PM EDT VNMBTYQDPX44/23/2025 8:25 PM EDT BXTGCYMNJJPIS29/23/2025 8:25 PM EDT LACTATE W/ WTFEPNFSOZ83/23/2025 8:25 PM EDT COMPREHENSIVE METABOLIC NATGIPMGE41/23/2025 8:25 PM EDT CBC WITH AUTO GYSSWPPCORBFKIXE90/23/2025 8:25 PM EDT EXTRA TUBES BLUE RSKPindews99/23/2025 8:24 PM EDT EXTRA RBDAJJdrfmxn56/23/2025 8:24 PM EDT from Last 3 Months Results * GI Panel(stool pathogen panel) (11/28/2024 9:00 AM EDT)ComponentValueRef Range Test MethodAnalysis TimePerformed AtPathologist SignatureCAMPYLOBACTERNot DetectedNot Pcivdhxi97/09/2025 3:59 PM [facility] PLESIOMONASNot DetectedNot Rdluzktu97/09/2025 3:59 PM [facility] LABORATORYSALMONELLANot DetectedNot Lnrwayxu79/09/2025 3:59 PM EDT [facility] LABORATORYVIBRIONot DetectedNot Wbpwdbrl67/09/2025 3:59 PM [facility] LABORATORYVIBRIO CHOLERAENot DetectedNot Bbjgepcs66/09/2025 3:59 PM [facility] LABORATORYY. ENTEROCOLITICANot DetectedNot Elzsqgza87/09/2025 3:59 PM [facility] LABORATORYAGGREGATIVE E COLINot DetectedNot Nkgriedb30/09/2025 3:59 PM [facility] LABORATORYPATHOGENIC E COLINot DetectedNot Msfoxdmh06/09/2025 3:59 PM [facility] LABORATORYTOXIGENIC E COLINot DetectedNot Vmgncape01/09/2025 3:59 PM [facility] LABORATORYSHIGA TOXIN E COLINot DetectedNot Wagmbdwi00/09/2025 3:59 PM EDT [facility] LABORATORYSHIGELLA-E COLINot DetectedNot Detected 11/28/2024 3:59 PM [facility]ORYCRYPTOSPORIDIUMNot DetectedNot Pbmoejrk98/09/2025 3:59 PM [facility] CYCLOSPORANot DetectedNot Lmqbujxs14/09/2025 3:59 PM [facility]ORYE HISTOLYTICANot DetectedNot Ngstssjj69/09/2025 3:59 PM EDT [facility] LABORATORYGIARDIA LAMBLIANot DetectedNot Detected 11/28/2024 3:59 PM [facility]ORATORYADENOVIRUSNot DetectedNot Oamhivet82/09/2025 3:59 PM [facility] ASTROVIRUSNot DetectedNot Lyindlve51/09/2025 3:59 PM [facility] LABORATORYNOROVIRUSNot DetectedNot Wylnrayf87/09/2025 3:59 PM [facility] LABORATORYROTAVIRUS ANot DetectedNot Mmxfjiyv81/09/2025 3:59 PM [facility] LABORATORYSAPOVIRUSNot DetectedNot Detected 11/28/2024 3:59 PM [facility] LABORATORYSpecimen (Source) Anatomical Location / LateralityCollection Method / VolumeCollection Time Received TimeStoolFeces / Uimzvso2311/28/2024 9:00 AM EDT1 10:15 AM EDT Narrative Authorizing ProviderResult TypeResult StatusMichael Jamaal NERI FLUIDS AND STOOLS ORDERABLESFinal ResultPerforming OrganizationAddressCity/State/ZIP Code Phone Number [facility] [address] [place] [address], * C difficile by PCR (11/28/2024 9:00 AM EDT)ComponentValueRef RangeTest Method Analysis TimePerformed AtPathologist SignatureTOXIGENIC C DIFFNegativeNegative 11/28/2024 2:37 PM [facility] UJCBYQWENU752 SLD1Mlnziurhskj NegativePresumptive Tddwccen98/09/2025 2:37 PM [facility] LABORATORYComment:Assay methodology is nucleic acid amplification by real-time PCR for detection of C. difficile toxin gene sequences performed on [employer] Instrument System.Specimen (Source)Anatomical Location / Laterality Collection Method / VolumeCollection TimeReceived TimeStoolFeces / Unknown 11/28/2024 9:00 AM EDT1 10:15 AM EDT Narrative Authorizing ProviderResult TypeResult StatusMichael D Badik DOBODY FLUIDS AND STOOLS ORDERABLESFinal ResultPerforming OrganizationAddressCity/State/ZIP Code Phone Number [facility] [address] [place] [address], * Thyroid profile includes TSH FT4 (11/25/2024 11:37 AM EDT)ComponentValueRef RangeTest MethodAnalysis TimePerformed AtPathologist SignatureFREE T40.880.61 - 1.60 ng/dL11/25/2024 7:55 PM [facility] LABORATORYTSH2.67 0.49 - 4.67 uIU/mL11/25/2024 7:55 PM [facility] Specimen (Source)Anatomical Location / LateralityCollection Method / Volume Collection TimeReceived TimeBloodVenous blood / UnknownVenipuncture / Unknown 11/25/2024 11:37 AM EDT1 11:37 AM EDT Narrative Authorizing ProviderResult TypeResult StatusMichael D Badjonelle DOLAB BLOOD ORDERABLESFinal ResultPerforming OrganizationAddressCity/State/ZIP CodePhone Number [facility] [address] [place] [address], * (ABNORMAL) CBC auto differential (11/25/2024 11:37 AM EDT) Only the most recent of2 resultswithin the time period is included. ComponentValueRef RangeTest MethodAnalysis TimePerformed AtPathologist Signature WBC11.3(H)4 - 11 x10E9/L1 6:30 PM [facility] LABORATORYRBC Count4.984.1 - 5.7 X10E12/L1 6:30 PM [facility] QZSASNCMYGScokwpvikp65.213 - 17 g/dL11/25/2024 6:30 PM [facility] AEMFXPYQIUVwfhmsdscl48.439 - 50 %11/25/2024 6:30 PM [facility] FOHWIWZGKVFEE4439 - 100 fL11/25/2024 6:30 PM [facility] HQXXQARJHLBHO49.627 - 34 pg11/25/2024 6:30 PM [facility] DVPBFMWXXUTAZX76.832 - 36 g/dL11/25/2024 6:30 PM [facility] INTQWRSGEMAKB13.311.5 - 15 %11/25/2024 6:30 PM [facility] LABORATORYPlatelet Ovjue484943 - 450 X10E9/L1 6:30 PM [facility] LABORATORYMPV9.77 - 12 fL11/25/2024 6:30 PM [facility] LABORATORYNeutrophils %68.0%11/25/2024 6:30 PM [facility] LABORATORYLymphocytes %23.5%11/25/2024 6:30 PM [facility] LABORATORYMonocytes %6.1%11/25/2024 6:30 PM [facility] LABORATORYEosinophils %1.6%11/25/2024 6:30 PM [facility] LABORATORYBasophils %0.8%11/25/2024 6:30 PM [facility] LABORATORYNeutrophils Absolute (A)7.7(H)1.5 - 6.6 10*3/uL11/25/2024 6:30 PM [facility]ATORYLymphocytes Absolute2.71.0 - 3.5 10*3/uL 11/25/2024 6:30 PM [facility] LABORATORYMonocytes Absolute0.7 0.0 - 0.9 10*3/uL11/25/2024 6:30 PM [facility] Eosinophils Absolute0.20.0 - 0.4 10*3/uL11/25/2024 6:30 PM [facility] LABORATORYBasophils Absolute0.10.0 - 0.2 10*3/uL11/25/2024 6:30 PM [facility] LABORATORYDifferential TypeAUTOMATED DIFFERENTIAL 11/25/2024 6:30 PM [facility] LABORATORYSpecimen (Source) Anatomical Location / LateralityCollection Method / VolumeCollection Time Received TimeBloodVenous blood / UnknownVenipuncture / Wzfcsyc6911/25/2024 11:37 AM EDT1 11:37 AM EDT Narrative Authorizing ProviderResult TypeResult StatusMichael D Badik DOLAB BLOOD ORDERABLESFinal ResultPerforming OrganizationAddressCity/State/ZIP CodePhone Number [facility] [address] [place] [address], [place] [phone] * Tissue transglutaminase, IgA & IgG (11/25/2024 11:37 AM EDT)ComponentValueRef RangeTest MethodAnalysis TimePerformed AtPathologist SignatureTTG AB IGA<1.2 <4.0 (Negative) U/mL11/26/2024 2:15 PM EDHCA FLOR[facility] LABORATORIESTTG AB IGG 3.1<6.0 (Negative) U/mL11/26/2024 2:15 PM [facility]ATORIESComment: Test Performed by: [facility] [address] [place] [address] Embedded Systems Software Engineer: Fadi Yates Ph.D.; CLIA# [id number] Specimen (Source)Anatomical Location / LateralityCollection Method / Volume Collection TimeReceived TimeBloodVenous blood / UnknownVenipuncture / Unknown 11/25/2024 11:37 AM EDT1 11:37 AM EDT Narrative Authorizing ProviderResult TypeResult StatusMichael D Badik DOLAB BLOOD ORDERABLESFinal ResultPerforming OrganizationAddressCity/State/ZIP CodePhone Number [facility] [address] [place] [address], * Microalbumin - Albumin: Creatinine Urine Ratio (11/25/2024 11:37 AM EDT) ComponentValueRef RangeTest MethodAnalysis TimePerformed AtPathologist SignatureURINE CREATININE,NZQ991.64mg/dL11/25/2024 7:44 PM [facility] LABORATORYMALB/CREAT RATIO11/25/2024 7:44 PM [facility] LABORATORYComment:Urine Microalbumin / Creatinine ratio not calculated due to non-numeric component.MICROALBUMIN, URINE<0.70.0 - 1.9 mg/dL11/25/2024 7:44 PM [facility] LABORATORYSpecimen (Source)Anatomical Location / LateralityCollection Method / VolumeCollection TimeReceived Time UrineUrine specimen collection, clean catch / UnknownCollection / Unknown 11/25/2024 11:37 AM EDT1 11:37 AM EDT Narrative Authorizing ProviderResult TypeResult StatusCharlie TURPIN ORDERABLES Final ResultPerforming OrganizationAddressCity/State/ZIP CodePhone Number [facility] [address] [place] [address], * (ABNORMAL) Vitamin D 25 hydroxy (11/25/2024 11:37 AM EDT)ComponentValueRef RangeTest MethodAnalysis TimePerformed AtPathologist SignatureVITAMIN D 25 HYD TOT15.1(L)30.0 - 100.0 ng/mL11/25/2024 8:04 PM [facility] LABORATORYSpecimen (Source)Anatomical Location / LateralityCollection Method / VolumeCollection TimeReceived TimeBloodVenous blood / UnknownVenipuncture / Ribytzm6911/25/2024 11:37 AM EDT1 11:37 AM EDT Narrative [facility] - 11/25/2024 8:04 PM EDT Vitamin D status 25 [place] Vitamin D Deficiency <20 ng/mL Insufficiency ? 20-29 ng/mL Sufficiency ? 30-100 ng/mL Toxicity >100 ng/mL NOTE: A pediatric reference range has not been established by the lathe setup operator of this kit. The [employer] [employer] recommends a Vitamin D level of = or >20ng/mL in infants and children. Authorizing ProviderResult TypeResult StatusMichael D Badik DOLAB BLOOD ORDERABLESFinal ResultPerforming OrganizationAddressCity/State/ZIP CodePhone Number [facility] [address] [place] [address], * (ABNORMAL) Lipid panel (11/25/2024 11:37 AM EDT)ComponentValueRef RangeTest MethodAnalysis TimePerformed AtPathologist XofqpsaqiETORDEJWIZQ76(L)150 - 200 mg/dL11/25/2024 7:47 PM [facility] LRLYJXYRCRSGEQPBUHUSOS356 (H)27 - 150 mg/dL11/25/2024 7:47 PM [facility] LABORATORYHDL ITHIKSTECHO34(L)>39 mg/dL11/25/2024 7:47 PM [facility]ORATORYComment: HDL <40 mg/dL - High Risk HDL > or = 40mg/dL- Desirable HDL >60 mg/dL - Negative Risk LDL (CALC)0<130 mg/dL11/25/2024 7:47 PM [facility] Comment: LDL <100 mg/dL - Desirable LDL >160 mg/dL - High Risk CHOLESTEROL:HDL3.51.0 - 5.010 7:47 PM [facility] LABORATORYVERY LOW [id number](H)0 - 30 mg/dL11/25/2024 7:47 PM [facility] LABORATORYSpecimen (Source)Anatomical Location / Laterality Collection Method / VolumeCollection TimeReceived TimeBloodVenous blood / UnknownVenipuncture / Mkyzjsf2811/25/2024 11:37 AM EDT1 11:37 AM EDT Narrative Authorizing ProviderResult TypeResult StatusMichael D Badik DOLAB BLOOD ORDERABLESFinal ResultPerforming OrganizationAddressCity/State/ZIP CodePhone Number [facility] [address] [place] [address], * (ABNORMAL) Comprehensive metabolic panel (11/25/2024 11:37 AM EDT) Only the most recent of2 resultswithin the time period is included. ComponentValueRef RangeTest MethodAnalysis TimePerformed AtPathologist Signature [id number] - 146 mmol/L1 7:47 PM [facility] LABORATORYPOTASSIUM3.93.5 - 5.0 mmol/L1 7:47 PM [facility] [id number] - 109 mmol/L1 7:47 PM [facility] LABORATORYCARBON [id number] - 32 mmol/L1 7:47 PM [facility] LABORATORYANION GAP95 - 15 mmol/L1 7:47 PM [facility] LABORATORYBLOOD UREA LXPZDSYD84 - 23 mg/dL11/25/2024 7:47 PM [facility]ORATORYCREATININE0.790.60 - 1.30 mg/dL11/25/2024 7:47 PM [facility]ORATORYComment:METHOD TRACEABLE TO IDMS DYLZCWKPTFCOODQ032(H)65 - 99 mg/dL11/25/2024 7:47 PM [facility] LABORATORYCALCIUM9.28.5 - 10.5 mg/dL11/25/2024 7:47 PM [facility]ORATORYTOTAL PROTEIN7.26.0 - 8.0 g/dL11/25/2024 7:47 PM [facility] LABORATORYALBUMIN4.33.2 - 5.3 g/dL11/25/2024 7:47 PM [facility]ORATORYALKALINE [id number] - 130 U/L1 7:47 PM [facility] HKOIBZCFXNRHZ38<=41 U/L1 7:47 PM [facility] SKDTNZYGQCUGJ25(H)<=40 U/L1 7:47 PM [facility] LABORATORYBILIRUBIN,TOTAL0.30.3 - 1.2 mg/dL11/25/2024 7:47 PM [facility]ORYEGFR Non-Race Dependent>90>=60 ml/min/1.73sq.m1 7:47 PM [facility]ORATORYComment: Reported eGFR is based on the CKD-EPI 2020 equation that does not use a race coefficient. Specimen (Source)Anatomical Location / LateralityCollection Method / Volume Collection TimeReceived TimeBloodVenous blood / UnknownVenipuncture / Unknown 11/25/2024 11:37 AM EDT1 11:37 AM EDT Narrative Authorizing ProviderResult TypeResult StatusMicjeff Landeros DOLAB BLOOD ORDERABLESFinal ResultPerforming OrganizationAddressCity/State/ZIP CodePhone Number [facility] [address] [place] [address], * POCT Hemoglobin A1c (11/22/2024 10:53 AM EDT)ComponentValueRef RangeTest MethodAnalysis TimePerformed AtPathologist SignatureExternal Poct Hgb A1C6.54 - 7 %MANUALLY TRANSCRIBED RESULTSADA Target < 8YesMANUALLY TRANSCRIBED RESULTS Specimen (Source)Anatomical Location / LateralityCollection Method / Volume Collection TimeReceived DhghTgofy32/03/2025 10:53 AM EDT Narrative Authorizing ProviderResult TypeResult StatusCharlie Landeros DOPOINT OF CARE TEST ORDERABLESFinal ResultPerforming OrganizationAddressCity/State/ZIP CodePhone Number MANUALLY TRANSCRIBED RESULTS * CT abdomen and pelvis with contrast (10/12/2024 9:28 PM EDT)Anatomical Region LateralityModalityBody, Abdomen, Body CoveraN/AComputed TomographySpecimen (Source)Anatomical Location / LateralityCollection Method / VolumeCollection TimeReceived Time10/12/2024 10:55 PM EDT Narrative 10/12/2024 11:01 PM EDT History: epigastric pain Exam/Technique: CT images of abdomen and pelvis were obtained following intravenous contrast injection. ??CT does automated exposure control was utilized. All CT scans at this facility use dose modulation, iterativereconstruction, and/or weight based dosing when appropriate to [...] Juan Hernandez MD on 10/12/2024 11:01 PM Procedure Note Juan Hernandez MD - 10/12/2024 History: epigastric pain Exam/Technique: CT images of abdomen and pelvis were obtained following intravenouscontrast injection. CT does automated exposure control was utilized. AllCT scans at this facility use dose modulation, iterative reconstruction,and/or weight based dosing when appropriate to reduce radiation dose to aslow as reasonably achievable. Comparison: 02/02/2024 Findings: Lung bases are clear. There is moderate hepatic steatosis with no discrete focal hepaticparenchymal abnormality. Gallbladder is mildly distended with no bile ductdilatation. Spleen, pancreas and adrenal glands are unremarkable. There are few pericaval lymph node largest measures 1.3 cm grossly stable compared to prior exam. Both kidneys are unremarkable. Bowel loops are grossly unremarkable. There is no free peritoneal air orfluid. Urinary bladder and prostate gland are grossly unremarkable Portal and mesenteric vessels are patent. There are few mesenteric rootlymph nodes more prominent compared to prior exam largest measures 1.7cm. Portal and mesenteric vessels are grossly patent. There is no gross acute osseous injury. IMPRESSION: Mesenteric adenitis with interval development of few prominent mesentericroot lymph nodes. Moderate hepatic steatosis. Finalized by Juan Hernandez MD on 10/12/2024 11:01 PM Authorizing ProviderResult TypeResult StatusJessica Rio Hinojosa FORMING MACHINE UPKEEP MECHANIC-CNPIMG CT ORDERABLESFinal Result * Lactate w/ Reflex (10/12/2024 8:25 PM EDT)ComponentValueRef RangeTest Method Analysis TimePerformed AtPathologist SignatureLACTATE W/REFLEX0.70.4 - 2.0 mmol/L10/12/2024 8:53 PM [facility] ([facility])Anatomical Location / LateralityCollection Method / VolumeCollection TimeReceived TimeBloodVenous blood / UnknownVenipuncture / Unqombd1310/12/2024 8:25 PM EDT10/12/2024 8:29 PM EDT Narrative [facility] - 10/12/2024 8:53 PM EDT Result did not trigger repeat Lactate, re-order if needed. Authorizing ProviderResult TypeResult StatusDeanna Pate Micaela FORMING MACHINE UPKEEP MECHANIC-CNPLAB BLOOD ORDERABLESFinal ResultPerforming OrganizationAddressCity/State/ZIP CodePhone Number [address] [place] [address], [place] * Magnesium (10/12/2024 8:25 PM EDT)ComponentValueRef RangeTest MethodAnalysis TimePerformed AtPathologist SignatureMAGNESIUM1.91.8 - 2.6 mg/dL10/12/2024 8:53 PM [facility] (Source)Anatomical Location / LateralityCollection Method / VolumeCollection TimeReceived Time BloodVenous blood / UnknownVenipuncture / Fnkjbhw5410/12/2024 8:25 PM EDT 10/12/2024 8:29 PM EDT Narrative Authorizing ProviderResult TypeResult StatusDeanna Pate Micaela FORMING MACHINE UPKEEP MECHANIC-CNPLAB BLOOD ORDERABLESFinal ResultPerforming OrganizationAddressCity/State/ZIP CodePhone Number [address] [place] [address], [place] * Lipase (10/12/2024 8:25 PM EDT)ComponentValueRef RangeTest MethodAnalysis Time Performed AtPathologist OstukhwkuUFZCFF0355 - 40 U/L10/12/2024 8:51 PM EDT [facility] (Source)Anatomical Location / LateralityCollection Method / VolumeCollection TimeReceived TimeBloodVenous blood / UnknownVenipuncture / Cfpurbx7010/12/2024 8:25 PM EDT10/12/2024 8:29 PM EDT Narrative Authorizing ProviderResult TypeResult StatusJessica Rio Micaela FORMING MACHINE UPKEEP MECHANIC-CNPLAB BLOOD ORDERABLESFinal ResultPerforming OrganizationAddressCity/State/ZIP CodePhone Number [address] [address], * Light Blue Top (10/12/2024 8:24 PM EDT)ComponentValueRef RangeTest Method Analysis TimePerformed AtPathologist SignatureExtra TubeAuto Resulted 10/12/2024 10:01 PM EDTPROMEDMONTEREY PARK HOSPITALpecimen (Source) Anatomical Location / LateralityCollection Method / VolumeCollection Time Received TimeBloodVenous blood / Qvywdbt8710/12/2024 8:24 PM EDT10/12/2024 8:29 PM EDT Narrative Authorizing ProviderResult TypeResult StatusDeanna Hinojosa FORMING MACHINE UPKEEP MECHANIC-CNPLAB BLOOD ORDERABLESFinal ResultPerforming OrganizationAddressCity/State/ZIP CodePhone Number [address] [address], from Last 3 Months Insurance Advance Directives * Full Code (Latest Code Status on File) Date ActivatedDate InactivatedComments11/09/2023 5:00 AM11/09/2023 8:42 PM * Full Code Date ActivatedDate InactivatedComments10/01/2021 2:38 PM10/02/2021 7:12 PM Care Teams Team MemberRelationshipSpecialtyStart DateEnd Date Tonya Dorman APRN-STUD [employer] [address] [place] [phone] PCP - GeneralNurse Practitioner03/25/24
--- NOTE | 2025-01-03 11:05 | CA_ITS ---
Patient Name: GLENNA NYE MR#: [id number] : 1995 Exam Date: 01/03/2025 Ordering Doctor: SHERLY SPENCER ECHOCARDIOGRAM REPOR PROCEDURE: CA ECHO DOPPLER COMPLETE INDICATIONS: Family h/o congestive heart failure, diabetes, hypertension COMPARISON: None. DESCRIPTION: COMPLETE ECHOCARDIOGRAM Real-time transthoracic echocardiography with 2D, M-mode, spectral and color flow Doppler performed. QUALITY: Technically difficult to obtain apical images. 66 , 385#, BSA 2.61 cm2 LEFT VENTRICLE: Normal chamber size. Mild concentric left ventricular hypertrophy. It was difficult to evaluate left ventricle systolic function due to poor definition of endocardium but appears to be preserved, cannot totally rule out wall motion abnormalities LV EF: DIASTOLIC: Normal diastolic function. ATRIAL SEPTUM: Visually appears intact LEFT ATRIUM: Normal chamber size. RIGHT ATRIUM: Normal chamber size. RIGHT VENTRICLE: Normal chamber size. Normal right ventricular systolic function. TRICUSPID VALVE: Normal mobility and thickness. No stenosis with mild regurgitation. Doppler studies reveal mildly (35-45) elevated right sided pressures.RVSP 36 mmHg MITRAL VALVE: Normal mobility and thickness. No evidence of mitral valve stenosis. There is no mitral annular calcification. No mitral regurgitation. AORTIC VALVE: Normal trileaflet appearance. No visible sclerosis. Normal leaflet mobility. No evidence of aortic valve stenosis. No aortic regurgitation. AORTIC ROOT: Normal diameter and appearance. Ascending aorta is normal in size. PULMONIC VALVE: Normal thickness and mobility. No stenosis. Trivial regurgitation. PERICARDIUM: No evidence of pericardial effusion. IVC: Not well visualized. PLEURA: CONCLUSION: Technically difficult study with poor definition of the endocardium It was difficult to evaluate left ventricle systolic function but appears to be preserved, cannot totally rule out wall motion abnormalities Normal left ventricle diastolic function Normal right ventricle size and systolic function No significant valvular abnormalities Suggest to repeat 2D study with contrast for more accurate evaluation of left ventricle ejection fraction Adult Echocardiography Procedure Report Left Ventricle LVEDD (3.7 - 5.6 cm): 4.96 cm LVESD (2.2 - 4.0 cm): 3.60 cm LVIVS thickness (0.6 - 1.2 cm): 1.28 cm LVPW thickness (0.5 - 1.0 cm): 1.26 cm e': 0.13 m/s E - e': 4.94 LVOT Max Gradient: 1.72 mm[Hg] LVOT Area (cm2): 0.66 m/s Peak Velocity (LVOT): 0.66 m/s Mean Velocity (LVOT): 0.43 m/s LVOT Diameter 2.04 cm Left Atrium LA Volume Index (2D A2C): 25.45 ml/m2 Left Atrium Systolic Dimension: 4.39 cm Mitral Valve MV E to A Ratio: 1.22 Mitral Valve A-Wave Peak Velocity: 0.52 m/s Mitral Valve E-Wave Peak Velocity: 0.64 m/s Right Ventricle Aorta AO Root Diam: 3.10 cm Ascending Ao Diam: 2.82 cm Aortic Valve AoV Area (Peak Alvin): 3.14 cm2, 3.14 cm2 AoV Area (VTI): 3.16 cm2, 3.16 cm2 Peak Velocity(Antegrade Flow): 0.68 m/s Peak Gradient(Antegrade Flow): 1.84 mm[Hg] Mean Velocity(Antegrade Flow): 0.44 m/s Mean Gradient(Antegrade Flow): 0.89 mm[Hg] Velocity Time Integral: 13.28 cm Tricuspid Valve Peak Velocity (Regurgitant Flow): 2.31 m/s, 2.85 m/s Pulmonic Valve Peak Velocity: 1.17 m/s Peak Gradient: 5.51 mm[Hg] Right Atrium Right Atrium Systolic Pressure: 39.92 ml, 39.92 ml Dictated by: Karen Welsh MD on 01/06/2025 at 17:38 Approved by: Karen Welsh MD on 01/06/2025 at 17:45
== END 2025-01-03 10:06 | disposition home or self-care (01) ==
LOC: CARD 10:08
PROVIDERS: PCP Nurse Practitioner Family; Visit Provider Family Medicine
DX: E11.9 Type 2 diabetes mellitus without complications (principal); I10 Essential (primary) hypertension; Z82.49 Family history of ischemic heart disease and other diseases of the circulatory system
CPT/HCPCS: 93306